=== PATIENT | male | born 1985 | race Two or more races ===

== ENCOUNTER 2018-02-04 15:17 | Emergency (ER) | payer MEDICAID ==
[~2018-02-04] VITALS: Ht 180.3 cm; Wt 94.3 kg
[2018-02-04] MEDS ORDERED: HYDROcodone/Acetamin 7.5/325 tab ORAL ONE (15:45)
--- NOTE | 2018-02-04 16:25 | Diagnostic Imaging Report ---
Indication: Right foot injury, first and second toe injury Technique: 3 views right foot Comparison: none Findings: A lucency through the first terminal tuft of the distal phalanx is most conspicuous on the oblique view, probably represents a nondisplaced fracture. No other fractures or dislocations. The joint spaces are preserved. Impression: Positive for first distal phalangeal fracture Findings discussed by phone with Dr. Vásquez at the time of interpretation
--- NOTE | 2018-02-04 16:41 | Emergency Room Report ---
History of Present Illness General Chief Complaint: Lower Extremity Injury Source: Patient Present Illness HPI 33 YO Male presents to the ED c/o 07/04 in severity pain, tenderness, bruising and swelling to the nail and cuticle of the left great toex4 days. He reports piece of plywood fell on his foot. He reports discoloration of the nail. Pt. reports the involved nail feels loose. pt. denies open wounds or lacerations. Denies numbness tingling or loss of sensation or gross motor movements of the extremities, incontinence of bowel or bladder. Denies CP, Palpitations, LOC, AMS , dizziness, Changes in Vision, Sensation, paresthesias, or a sudden severe headache. Allergies: Coded Allergies: No Known Allergies (Unverified , 02/04/18) Patient History Past Medical History: see triage record Past Surgical History: none Pertinent Family History: none Reviewed Nursing Documentation: PMH: Agreed, PSxH: Agreed Nursing Documentation-PMH Past Medical History: No Stated History Review of Systems All Other Systems: negative except mentioned in HPI Physical Exam Vital Signs Date Time Temp Pulse Resp B/P (MAP) Pulse Ox O2 Delivery O2 Flow Rate FiO2 02/04/18 15:29 98.2 68 18 133/93 95 Room Air 98.2 Sp02 EP Interpretation: reviewed, normal General Appearance: no apparent distress, alert, GCS 15, non-toxic Head: normocephalic, atraumatic ENT: hearing grossly normal, normal voice Neck: full range of motion Respiratory: lungs clear, normal breath sounds, speaking full sentences Cardiovascular #1: regular rate, rhythm, normal capillary refill Musculoskeletal: back normal, gait/station normal, normal range of motion, tender - TTP to the distal left great toe, subungual hematoma noted at the matrix area of the nail. mild posterior onchyolysis noted posteriorly. Neurologic: alert, oriented x3, responsive, motor strength/tone normal, sensory intact, normal gait, speech normal, grossly normal Psychiatric: judgement/insight normal Skin: normal color, no rash, warm/dry, well hydrated, other - subungual hematoma of left great toe. Procedures Nail Trepanation Nail Trepanation : Consent: Verbal Nail Trepanation Location: Left great toe Method of Drainage: nail cauterized Sterile Dressing Applied: Yes Finger Splint: Yes - pt. placed into cast shoe as he has associated toe fx. Patient Tolerated: Well Complications: None Progress moderate amount of blood was successfully evacuated. pt. declined nail removal and eval for nailbed laceration. Medical Decision Making PA Attestation Dr. fishman is my supervising Physician whom patient management has been discussed with. Diagnostic Impression: Primary Impression: Fracture of toe of right foot Qualified Codes: S92.421A - Displaced fracture of distal phalanx of right great toe, initial encounter for closed fracture Additional Impression: Subungual hematoma of great toe of right foot Qualified Codes: S90.211A - Contusion of right great toe with damage to nail, initial encounter ER Course Pt. presents to the ED c/o 07/04 in severity pain, tenderness, bruising and swelling to the nail and cuticle of the left great toex4 days. He reports piece of plywood fell on his foot. He reports discoloration of the nail. Pt. reports the involved nail feels loose. pt. denies open wounds or lacerations. Denies numbness tingling or loss of sensation or gross motor movements of the extremities, incontinence of bowel or bladder. Denies CP, Palpitations, LOC, AMS , dizziness, Changes in Vision, Sensation, paresthesias, or a sudden severe headache. Ddx considered but are not limited to subungual hematoma, nail-bed laceration, fracture, nail avulsion, paronychia/eponychia just to name a few. Vital signs: are WNL, pt. is afebrile H&PE are most consistent with subungual hematoma and possible left great toe fracture. ORDERS: -X-rays: Positive for Fx. ED INTERVENTIONS: -Pain medication - nail trepanation - Left Foot Cast Shoe applied by [facility] technician. Pt. remains neurovascularly intact. Discussed with the patient that due to subungual hematoma and evidence of fracture on x-ray that removal of the toenail for evaluation of nail-bed laceration as recommended and would require repair. Patient states that he does not want his toe nail removed and he declines this procedure he states that he wants the nail to fall off naturally. Discussed with patient that if there is a nail-bed laceration that this will cause deformity in the nail. DISCHARGE: At this time pt. is stable for d/c to home. Will provide printed patient care instructions, and any necessary prescriptions. Care plan and follow up instructions have been discussed with the patient prior to discharge. Other X-Ray Diagnostic Results Other X-Ray Diagnostic Results : X-Ray ordered: Right Foot # of Views/Limited Vs Complete: 1 View Indication: Pain EP Interpretation: Yes PA Xray: Interpretation reviewed, by supervising MD, and agrees with findings. Interpretation: no dislocation, no soft tissue swelling, other - distal tuft fracture of the right great toe. Impression: Other - abnormal Electronically Signed by: Elke Kolb PA-C Last Vital Signs Date Time Temp Pulse Resp B/P (MAP) Pulse Ox O2 Delivery O2 Flow Rate FiO2 02/04/18 15:56 98.2 02/04/18 15:29 68 18 133/93 95 Room Air Disposition: HOME, SELF-CARE Condition: Stable Scripts Amoxicillin/Potassium Clav 875-125* (AUGMENTIN 875-125 TABLET*) 1 Each Tablet 1 TAB ORAL TWICE A DAY for 7 Days, #14 TAB Prov: Elke Kolb 02/04/18 Hydrocodone Bit/Acetaminophen 5-325* (NORCO 5-325*) 1 Each Tablet 1 TAB ORAL Q6H Y for For Pain, #10 TAB 0 Refills Prov: Elke Kolb 02/04/18 Departure Forms: Return to Work Return to Work Date: Feb 05, 2018 Work Restrictions: No Heavy Lifting, No Prolonged Standing Other Restrictions: light duty, no prolonged walking or standing. Return to Full Activity: Feb 14, 2018 Patient Instructions: Subungual Hematoma, Toe Fracture, [id number] Additional Instructions: Take medications as directed. Follow up with a n customer advisor specialist or Lithographing Machine Operator in 3-5 days, even if your symptoms have resolved. --Please review list of primary care clinics, if you do not already have a primary care provider Return sooner to ED if new symptoms occur, or current symptoms become worse. Do not drink alcohol, drive, or operate heavy machinery while taking [place] as this may cause drowsiness. - Please note that this Emergency Department Report was dictated using VANCLbilingual office assistant technology software, occasionally this can lead to erroneous entry secondary to interpretation by the dictation equipment. Elke Kolb Feb 04, 2018 16:41
[2018-02-04] MEDS ORDERED: AUGMENTIN 875-1 EAC1 ORAL (16:42)
[2018-02-04] MEDS ORDERED: NORCO 5-325 TA1 EACH ORAL (16:42)
[2018-02-04 16:53] VITALS: BP 133/93
== END 2018-02-04 16:55 | disposition home or self-care (01) ==
LOC: EMR 16:55
DX: S92.424A Nondisplaced fracture of distal phalanx of right great toe, initial encounter for closed fracture (principal); W22.8XXA Striking against or struck by other objects, initial encounter; Y92.410 Unspecified street and highway as the place of occurrence of the external cause
CPT/HCPCS: 99284